=== PATIENT | male | born 2000 | race Caucasian/White ===

== ENCOUNTER 2021-06-08 15:03 | Emergency (ER) | payer OTHER ==
[~2021-06-08] VITALS: Ht 165.1 cm; Wt 111.1 kg
--- NOTE | 2021-06-08 15:10 | NUR ---
No answer for triage at this time
[2021-06-08 15:16] VITALS: BP 100/64
[2021-06-08] MEDS ORDERED: IBUPROFEN 600 MG TAB PO ONE (15:55)
--- NOTE | 2021-06-08 16:24 | NUR ---
Covid swab collected and walked to lab
[2021-06-08] MEDS ORDERED: IBUP-2213 PO (16:42)
[2021-06-08 17:36] VITALS: BP 114/70
--- NOTE | 2021-06-08 17:36 | NUR ---
Patient discharged with v/s stable. Written and verbal after care instructions given FOR VIRAL ILLNESS and explained. Patient alert, oriented and verbalized understanding of instructions. Ambulatory with steady gait. All questions addressed prior to discharge. ID band removed. Patient advised to follow up with PMD. Rx of IBUPROFEN given. Patient educated on indication of medication including possible reaction and side effects. Opportunity to ask questions provided and answered.
== END 2021-06-08 17:36 | disposition home or self-care (01) ==
LOC: MED 15:03
DX: U07.1 COVID-19 (principal); B34.9 Viral infection, unspecified; Z79.1 Long term (current) use of non-steroidal anti-inflammatories (NSAID); Z88.0 Allergy status to penicillin; Z88.2 Allergy status to sulfonamides
CPT/HCPCS: 99283; U0003